=== PATIENT | male | born 1955 | race Caucasian/White ===

== ENCOUNTER 2017-01-07 11:00 | Inpatient (IN) | payer OTHER ==
[~2017-01-07] VITALS: Ht 188 cm; Wt 130.0 kg
--- NOTE | ~2017-01-07 | DS ---
PATIENT'S NAME: BHUPENDRA RODRIGUEZ [facility] AGE: 61 Y [address] ROOM: [place] [address] LOCATION: [facility] ADMIT DATE: 01/22/2017 Discharge Summary DISCHARGE DATE: 01/24/2017 FAMILY PHYSICIAN: Marcel Miguel MD ATTENDING PHYSICIAN: Elio Ma PRIMARY DIAGNOSIS: Osteoarthritis, left hip. SECONDARY DIAGNOSES: 1. History of anemia. 2. Hypertension. 3. History of gout. 4. Hyperthyroidism. PROCEDURE PERFORMED: Left total hip arthroplasty. HISTORY: The patient is a 61-year-old male, who presents with advanced left hip degenerative joint disease and associated severely compromised activities of daily living. The patient has decided to proceed with total left hip arthroplasty after having been thoroughly counseled regarding the risks, benefits, limitations, and alternatives. Please refer to the outpatient clinic notes and admission history and physical for this patient. HOSPITAL COURSE: The patient underwent a total left hip arthroplasty on 01/22/2017 without complications. Spinal anesthesia plus subcutaneous and periarticular local anesthesia was utilized. The patient received 24 hours of perioperative prophylactic antibiotics and remained hemodynamically stable, neurovascularly intact throughout the entire hospital course. The postoperative prophylactic deep venous thrombosis prophylaxis consisted of Xarelto, early mobilization and pneumatic compression devices. Daily physical therapy for gait training, transfer training, and reinforcement of hip dislocation precautions were received. The patient progressed well in physical therapy. On the date of discharge, 01/24/2017, the incision at the hip was healing well and showed no signs of infection. DISPOSITION: Home. DISCHARGE ACTIVITY: The patient is to bear weight as tolerated with strict hip dislocation precautions as instructed. There are to be no dressing changes. Dr. Ma is to be notified immediately if there is any increased pain, fevers, chills, erythema, or drainage. DISCHARGE MEDICATIONS: 1. Xarelto 10 mg 1 tablet p.o. daily for 12 days for postoperative DVT prophylaxis. PATIENT'S NAME: BHUPENDRA RODRIGUEZ [facility] AGE: 61 Y [address] ROOM: [address] [address] LOCATION: [facility] ADMIT DATE: 01/22/2017 Discharge Summary DISCHARGE DATE: 01/24/2017 FAMILY PHYSICIAN: Marcel Miguel MD ATTENDING PHYSICIAN: Elio Ma 2. Gabapentin 300 mg 1 tablet p.o. at night for pain for 7 days. 3. Hydromorphone 2 mg 1 to 2 tablets p.o. every 4 hours p.r.n. for pain. The patient was then instructed to continue all his other pre-admission medications as instructed by his Internal Medicine doctor. FOLLOWUP: Followup appointment is to be with Dr. Ma's office on 01/30/2017 for his initial postoperative evaluation. KIMO PASCAL PA-C FOR MD RENATO BOSS/tanika /[id number] d: 02/04/170 t: 02/05/17 1334, DISCHARGE SUMMARY
--- NOTE | ~2017-01-07 | OR ---
PATIENT'S NAME: BHUPENDRA MAGANA [facility] AGE: 61 Y [address] ROOM: [address] [address] LOCATION: [facility] ADMIT DATE: 01/22/2017 OR/Procedure Report DISCHARGE DATE: FAMILY PHYSICIAN: Marcel Miguel MD ATTENDING PHYSICIAN: ISAURA LAW SURGEON: Isaura Law MD WOOD PATTERNMAKER APPRENTICE: 1. Luisito Ibarra CST/MALIKA. 2. Isaura Low. DATE OF PROCEDURE: 01/22/2017 PREOPERATIVE DIAGNOSIS: Primary osteoarthritis, left hip. POSTOPERATIVE DIAGNOSIS: Primary osteoarthritis, left hip. OPERATION: Left total hip arthroplasty. ANESTHESIA: Spinal anesthesia plus subcutaneous and periarticular local anesthesia (ropivacaine with epinephrine and Toradol). ESTIMATED BLOOD LOSS: Approximately 250 mL. DRAIN: None. SPECIMEN: None. COMPLICATIONS: None. IMPLANTS: 1. Tyron Trident titanium size 62 mm hemispherical uncemented acetabular shell with one dome hole cover and no screws. 2. [place] neutral X3 acetabular polyethylene liner with 40 mm inner diameter. 3. Size 8 high-offset DePuy [place] uncemented femoral component with hydroxyapatite coating. 4. A 40 mm Biolox femoral head with +1.5 mm neck length. INDICATION FOR SURGERY: Bhupendar Magana is a 61-year-old male who presents with advanced left hip primary osteoarthritis and associated severely compromised activities of daily living. The patient has decided to proceed with hip replacement after having been thoroughly counseled regarding the associated risks, benefits, and limitations. We have specifically reviewed the risks and implications of infection, deep venous thrombosis, pulmonary embolism, mortality, neurovascular complications, blood transfusion (and associated potential for disease transmission or transfusion reaction), stiffness, instability, leg length discrepancy, mechanical deterioration of the PATIENT'S NAME: BHUPENDRA MAGANA [facility] AGE: 61 Y [address] ROOM: [address] [address] LOCATION: [facility] ADMIT DATE: 01/22/2017 OR/Procedure Report DISCHARGE DATE: FAMILY PHYSICIAN: Marcel Miguel MD ATTENDING PHYSICIAN: ISAURA LAW components (due to wear and to loosening), and the potential need for revision. DESCRIPTION OF PROCEDURE: The patient was positioned in a lateral decubitus position with the left side up after administration of anesthesia and prophylactic antibiotics. An axillary roll was placed and the non-operative leg was well padded. The pelvis was locked perpendicularly to the floor on a pegboard. The left hip and entire operative extremity were prepped and draped with vigilant sterile technique. The patient's name as well as the intended operative side and procedure were confirmed with a verbal time-out involving myself, the circulating nurse, the scrub nurse, and the anesthesiologist. The left hip was approached through a standard posterolateral incision. The fascia fish and the gluteus estefania fascia were sharply divided in line with the overlying skin incision. The sciatic nerve was identified and was vigilantly protected throughout the entire case. The short external rotators and posterior capsule were divided from their respective femoral insertions and tagged with four #1 Ethibond sutures for later repair. The hip was posteriorly dislocated with combined flexion, adduction, and internal rotation. The femoral neck osteotomy was performed with an oscillating saw. Inspection of the femoral head demonstrated full-thickness loss of articular cartilage throughout its weightbearing surface. Photographic documentation of the status of the femoral head was obtained. There was a large osteophyte at the periphery of the femoral head. There was no femoral head collapse. Circumferential acetabular exposure was obtained. Inspection of the acetabulum demonstrated large medial and inferior osteophytes. There was a large effusion consisting of benign-appearing translucent synovial fluid. There was full-thickness loss of articular cartilage throughout of the weightbearing surface. There was no dysplasia. Remnants of the acetabular labrum were sharply thoroughly excised. The acetabulum was sequentially progressively reamed up to 61 mm with hemispherical power reamers. The final acetabular shell was impacted into position in 20 degrees of anteversion and 45 degrees of inclination. An excellent press-fit was obtained. No supplemental dome screw fixation was necessary. A neutral trial liner was inserted. Attention was next focused upon femoral preparation. The femoral canal initiator was utilized. The femoral canal was reamed by hand to a size 6 and on power to a size 8 with tapered conical reamers. The size 8 reamer tightly engaged the end-osteal cortex of the proximal femur. The femoral canal was subsequently sequentially progressively broached up to a size 8. The size 8 PATIENT'S NAME: BHUPENDRA MAGANA [facility] AGE: 61 Y [address] ROOM: [place] [address] LOCATION: N ADMIT DATE: 01/22/2017 OR/Procedure Report DISCHARGE DATE: FAMILY PHYSICIAN: Marcel Miguel MD ATTENDING PHYSICIAN: ISAURA LAW obtained excellent axial and rotational stability. Trial reductions with the above specified construct yielded acceptable stability and acceptable reproduction of leg length and offset. All trial components were removed. The final acetabular liner was inserted with excellent circumferential visualization of its locking mechanism to assure adequate deployment. The final femoral component was impacted into position. The femoral component achieved excellent axial and rotational stability. The trunnion of the femoral component was vigilantly protected prior to placement of the femoral head. The trunnion of the femoral component was thoroughly cleaned and dried prior to placement of the femoral head. The incision was thoroughly irrigated with bacteriostatic pulsatile saline lavage multiple times throughout the case. The entire joint space was thoroughly inspected and thoroughly irrigated to assure that there was no residual debris of any sort. A final reduction was then performed. After final reduction, the hip could be firmly externally rotated in full extension and zero degrees of abduction without anterior subluxation. In neutral rotation and zero degrees of abduction, the hip could be firmly flexed to 120 degrees without instability. At 90 degrees of flexion and zero degrees abduction, the hip could be internally rotated to 65 degrees before there was any hint of posterior subluxation. The posterior capsule and short external rotators were repaired through two drill holes in the posterior aspect of the greater trochanter. The fascia fish and gluteus estefania fascia were closed with multiple simple and [id number] interrupted # 1 Ethibond and #1 Vicryl sutures. Subcutaneous tissues were thoroughly re-irrigated with bacteriostatic pulsatile saline lavage. Subcutaneous tissues were re-approximated with simple buried interrupted #0 Vicryl sutures. The skin was closed with superficial buried interrupted 2-0 Vicryl sutures followed by a running subcuticular 3-0 Monocryl suture, followed by Octylseal, followed by Steri- Strips with benzoin, followed by an occlusive Mepilex dressing. There were no intra-operative complications. MD KOBE BOSS/tanika PATIENT'S NAME: BHUPENDRA MAGANA [facility] AGE: 61 Y [address] ROOM: [address] [address] LOCATION: [facility] ADMIT DATE: 01/22/2017 OR/Procedure Report DISCHARGE DATE: FAMILY PHYSICIAN: Marcel Miguel MD ATTENDING PHYSICIAN: ISAURA LAW /[id number] d: 01/22/17 1403 t: 01/22/17 2202, OPERATIVE SUMMARY
[~2017-01-07 11:00] MED LIST: ALEVE220 MG PO; COLCRYS0.6 MG PO; HYDRODIURIL25 MG PO; NON-ASPIRIN EX500 M1 PO; OMEGA-3 KRILL1 EAC3 PO; THERA-VITE W/ B1 TAB PO; ULORIC80 MG PO
[2017-01-24] MEDS ORDERED: COLACE100 MG PO (10:21)
[2017-01-24] MEDS ORDERED: NEURONTIN300 MG PO (10:22)
[2017-01-24] MEDS ORDERED: XARELTO10 MG PO (10:24)
[2017-01-24] MEDS ORDERED: DILAUDID 2MG(HYD2 MG PO (10:25)
== END 2017-01-24 14:48 | disposition disaster alternative care site (69) | DRG 470 ==
LOC: UNDOADMIN 01-20 12:36 → G3N 01-20 12:36
PROVIDERS: ADMIT Orthopaedic Surgery
PROC: 0SRB02A Replacement of Left Hip Joint with Metal on Polyethylene Synthetic Substitute, Uncemented, Open Approach (ICD-10-PCS; principal; 2017-01-22)
DX: M16.12 Unilateral primary osteoarthritis, left hip (principal); I10 Essential (primary) hypertension; E03.9 Hypothyroidism, unspecified; G47.30 Sleep apnea, unspecified; Z87.891 Personal history of nicotine dependence
CPT/HCPCS: C1776; J0690; J2001; J7030; J7120

== ENCOUNTER → 2017-01-09 | Outpatient (CLI) | payer OTHER ==
[~2017-01-09] MED LIST changes: +COLACE100 MG PO; +DILAUDID 2MG(HYD2 MG PO; +NEURONTIN300 MG PO; +XARELTO10 MG PO
== END | disposition disaster alternative care site (69) ==
LOC: GNJRC 10:38
DX: Z01.812 Encounter for preprocedural laboratory examination (principal); M16.12 Unilateral primary osteoarthritis, left hip